=== PATIENT | female | born 1965 | race American Indian/Alaskan Native ===

== ENCOUNTER 2017-11-27 08:24 | Outpatient (CLI) | payer OTHER ==
--- NOTE | 2017-11-27 10:02 | Ultrasound Report ---
Thyroid ultrasound: Nontoxic goiter. Right lobe measures 2.1 x 2.6 x 4.6 cm and the left lobe measures 2.4 x 2.3 x 4.4 cm. The isthmus has a thickness of 7 mm. The overall architecture is heterogeneous with no solid masses. 3 small cystic structures in the right lobe the largest being 9 mm and one in the left measuring 7 mm. Impression: Thyroid gland roughly within normal limits of size. No suspicious findings.
== END 2017-11-27 08:25 | disposition home or self-care (01) ==
LOC: SPVWC 08:24
PROVIDERS: ATTEND Family Medicine
DX: E04.9 Nontoxic goiter, unspecified (principal)
CPT/HCPCS: 76536

== ENCOUNTER 2020-12-08 15:26 | Outpatient (CLI) | payer BC ==
--- NOTE | 2020-12-09 11:48 | XRay Report ---
Cervical spine 4 views INDICATION: Neck pain FINDINGS: Alignment appears normal. Endplate changes with anterior disc osteophytes at C4-C5 C5-C6 an d C6-C7. No prevertebral soft tissue swelling. Odontoid appears normal. Signer Name: Mauri Pearl MD Signed: 12/09/2020 11:44 AM Workstation Name: [id number]
== END 2020-12-08 15:27 | disposition home or self-care (01) ==
LOC: SPVIMAG 15:26
PROVIDERS: ATTEND Family Medicine
DX: M25.78 Osteophyte, vertebrae (principal); M79.89 Other specified soft tissue disorders
CPT/HCPCS: 72040